=== PATIENT | male | born 1950 | race Caucasian/White ===

== ENCOUNTER 2017-04-22 06:45 | Emergency (ER) | payer MEDICARE ==
--- NOTE | 2017-04-22 07:32 | ED ---
General Adult HPI - General Chief complaint: Recheck/Abnormal Lab/Rx Stated complaint: Shingles Time Seen by Provider: 04/22/17 07:05 Source: patient, RN notes reviewed Mode of arrival: ambulatory Limitations: no limitations - History of Present Illness Initial comments: Patient is a pleasant 58-year-old male presenting to the emergency department with concern for shingles. Patient saw his doctor on Saturday and was started on Valtrex. Patient states symptoms started shortly prior to that. Patient is concerned that rash is getting near his right eye. Patient was told he would need to be evaluated again if this occurred. Patient has chronic right eye problems. Patient has had retinal detachment and other surgeries. Patient does have a history of surgery for glaucoma as well. Patient states his vision is limited and he is only able to see shadows most the time. Patient states at times she can see shapes. No eye pain. No left eye involvement. No change in vision at this time. Patient does have rash of his right forehead and states there is mild discomfort involved with this. - Related Data Home Medications Medication Instructions Recorded Confirmed Albuterol Sulfate [Proair Hfa] 1 - 2 puff INHALATION RT-Q6H PRN 09/02/16 Aspirin EC [Ecotrin Low Dose] 81 mg PO DAILY 09/02/16 09/02/16 Budesonide/Formoterol Fumarate 2 puff INHALATION RT-BID 09/02/16 09/02/16 [Symbicort 160-4.5 Mcg Inhaler] Esomeprazole Magnesium [NexIUM] 40 mg PO DAILY 09/02/16 09/02/16 Fluticasone Nasal [place] [Flonase 2 spr EA NOSTRIL DAILY 09/02/16 09/02/16 Nasal [place]] Previous Rx's Medication Instructions Recorded Azithromycin [Zithromax Z-pack] 250 mg PO DIRECTED #6 tab 09/02/16 Ipratropium-Albuterol Nebulize 3 ml INHALATION Q6HR PRN #30 neb 09/02/16 [Duoneb 0.5 mg-3 mg/3 ml Soln] methylPREDNISolone Dose Pack 4 mg PO DIRECTED #21 package 09/02/16 [Medrol Dose Pack] Allergies Allergy/AdvReac Type Severity Reaction Status Date / Time tramadol HCl [From Ultram] Allergy Unknown Verified 09/02/16 19:31 Review of Systems ROS Statement: Those systems with pertinent positive or pertinent negative responses have been documented in the HPI. ROS Other: All systems not noted in ROS Statement are negative. Constitutional: Denies: fever Eyes: Denies: eye pain, vision change ENT: Denies: ear pain Respiratory: Denies: cough Cardiovascular: Denies: chest pain Endocrine: Denies: fatigue Gastrointestinal: Denies: abdominal pain Genitourinary: Denies: urgency Musculoskeletal: Denies: back pain Skin: Denies: rash Neurological: Denies: weakness Past Medical History Past Medical History: Atrial Fibrillation, Asthma, COPD History of Any Multi-Drug Resistant Organisms: None Reported Past Surgical History: Hernia Repair, Orthopedic Surgery Additional Past Surgical History / Comment(s): ablation 3 weeks ago/ wrist / rotator cuff x2/ detatched retina/cataract Past Psychological History: No Psychological Hx Reported Smoking Status: Former smoker Past Alcohol Use History: Daily General Exam Limitations: no limitations General appearance: alert, in no apparent distress Head exam: Present: atraumatic Eye exam: Present: EOMI, other (Right pupil dilated and nonreactive. Limited funduscopic exam on the right. Fluroscein stain with some uptake on the right side near the border of iris.) ENT exam: Present: normal oropharynx Neck exam: Present: normal inspection Respiratory exam: Present: normal lung sounds bilaterally Cardiovascular Exam: Present: regular rate, normal rhythm GI/Abdominal exam: Present: soft. Absent: tenderness Extremities exam: Present: normal inspection Neurological exam: Present: alert Psychiatric exam: Present: normal affect, normal mood Skin exam: Present: rash (Right-sided forehead into the upper hairline with raised erythematous rash. There is minimal crusting.) Course Vital Signs 04/22/17 06:48 Temperature 98.4 F Pulse Rate 83 Respiratory 16 Rate Blood Pressure 135/79 O2 Sat by Pulse 95 Oximetry Medical Decision Making - Medical Decision Making case was discussed with Dr. Tadeo who will follow-up with this patient this morning. Patient updated. Disposition Clinical Impression: Shingles Disposition: HOME SELF-CARE Condition: Stable Instructions: Shingles (ED) Additional Instructions: Continue Valtrex as prescribed. Please follow-up with ophthalmology, Dr. Tadeo now. Return for increased rash, eye pain, visual loss, fever, worsening symptoms or other concerns. Referrals: Luis Alberto Davison MD [Primary Care Provider] - 1-2 days Ngo,Fahim K, MD [STAFF PHYSICIAN] - 1-2 days Time of Disposition: 08:04
[2017-04-22 08:33] VITALS: BP 139/80; PULSE 76; RESP 18; TEMP 97.7
== END 2017-04-22 08:27 | disposition home or self-care (01) ==
LOC: EC 06:45
DX: B02.9 Zoster without complications (principal); Z79.82 Long term (current) use of aspirin; J44.9 Chronic obstructive pulmonary disease, unspecified; J45.909 Unspecified asthma, uncomplicated; Z79.51 Long term (current) use of inhaled steroids; Z79.899 Other long term (current) drug therapy; Z87.891 Personal history of nicotine dependence; Z88.6 Allergy status to analgesic agent; H57.04 Mydriasis; Z98.890 Other specified postprocedural states
CPT/HCPCS: 99283

== ENCOUNTER → 2017-05-07 | Outpatient (CLI) | payer MEDICARE ==
--- NOTE | 2017-05-07 08:47 | US ---
EXAMINATION TYPE: US duplex aorta DATE OF EXAM: 05/07/2017 COMPARISON: NONE CLINICAL HISTORY: Z78.9 AAA screening. EXAM MEASUREMENTS: Abdominal Aorta: Proximal: 2.4cm Mid: 2.4cm Distal: 2.1cm Bifurcation: 1.1cm 1.3cm Aorta somewhat obscured by overlying bowel gas. IMPRESSION: NO EVIDENCE OF AORTIC ANEURYSM AT THIS TIME.
--- NOTE | 2017-05-07 09:36 | CTL ---
EXAMINATION TYPE: CT Low Dose Lung DATE OF EXAM ORDERED: 05/07/2017 HISTORY: . Lung cancer screening CT DLP: [address] CTDI: 2.41 mGy Automated exposure control for dose reduction was used. SCREENING VISIT: First COMPARISON: Previous CT scan of the chest dated 05/20/2013 TECHNIQUE: Low dose computed tomography scan was performed through the chest at 1 mm thick sections a nd reconstructed images in the coronal plane at [address] DIAGNOSTIC QUALITY: Limited, but interpretable FINDINGS: LUNG NODULES: None. LUNGS: COPD: Severity: Mild Fibrosis: Severity: None Lymph nodes: No pathologically enlarged lymph nodes Other findings: Apical scarring RIGHT PLEURAL SPACE: Effusion: None Calcification: None Thickening: None Pneumothorax: None LEFT PLEURAL SPACE: Effusion: None Calcification: None Thickening: None Pneumothorax: None HEART: Heart Size: Normal Coronary calcification: Minimal Pericardial effusion: None OTHER FINDINGS: Upper abdomen: Unremarkable Bony thorax: Hypertrophic spondylosis Supraclavicular region: Unremarkable Other: None IMPRESSION: Mild emphysematous change. FOLLOW UP CT CHEST RECOMMENDATION: [address] LUNG RAD: 1
== END | disposition home or self-care (01) ==
LOC: RADUSWWP 08:02
PROVIDERS: ATTEND Family Medicine
DX: Z12.2 Encounter for screening for malignant neoplasm of respiratory organs (principal); J43.9 Emphysema, unspecified; Z87.891 Personal history of nicotine dependence; Z13.6 Encounter for screening for cardiovascular disorders
CPT/HCPCS: 93979; G0297

== ENCOUNTER → 2017-06-25 | Outpatient (CLI) | payer MEDICARE ==
--- NOTE | 2017-06-26 09:05 | CONS ---
This is a consultation for sleep apnea. Primary care physician is Dr. Luis Alberto Davison. This is a 67-year-old male patient who was presenting to sleep center with concerns of sleep apnea. He is known to have COPD and previous history of atrial fibrillation, for which he has undergone a successful ablation at [facility] in [place]. Currently, he is in sinus rhythm and he is off anticoagulation. In terms of his COPD, he is on Arnuity inhaler at one puff a day. He has been very sleepy. His [place] score is at 17. He has soft snoring. No witnessed apneas. He has nocturia. He has nocturnal heartburn. He falls asleep during the day and is quite sleepy and it has been getting gradually worse. No falling asleep while driving. He is currently retired. No recent weight gain. He goes to bed around 10 p.m., wakes up 7 a.m. in the morning; averaging at least 8 hours of sleep. [place] score is at 17 for now. No angina. No swelling of the lower extremities. No restless legs. No sleep walking or sleep talking. No grinding of the teeth. No anxiety or depression. PAST MEDICAL HISTORY: 1. COPD. 2. Chronic atrial fibrillation, currently in sinus post ablation. 3. Obesity. 4. Vitamin B12 deficiency. 5. Acid reflux. Surgical history includes ablation of atrial fibrillation, hernia repair, rotator cuff surgery in both shoulders, carpal tunnel release, cataract surgery and surgery for detached retina. Allergies are to ULTRAM. Outpatient medication list includes Nexium, Flonase, baby aspirin, Arnuity inhaler, Lamisil and gabapentin. Family history is negative for sleep apnea. SOCIAL HISTORY: Patient is an ex-smoker. No history of alcohol. No history of IV drugs. REVIEW OF SYSTEM: Twelve point review of systems was done. No stroke. No seizures. No change in mental status. No nasal polyps. She had no anemia. No mental illness. No restlessness of the lower extremities. No cancer history. No degenerative arthritis. No motor vehicle accident because of falling asleep, although he has dozed off behind the wheel because of feeling excessively sleepy. BP is 118/78, pulse 74, respiratory rate 16, temperature 97.5, saturation 94% on room air. Weight is 222. Height is 70 inches. BMI is 31.8. [place] score is 17. Neck size is 18 inches. GENERAL APPEARANCE: Calm, comfortable. HEENT: Mallampati class 3. No goiter or neck mass. LUNGS: Clear to auscultation. HEART SOUNDS: Regular rate and rhythm. Normal S1, S2. No S3, no S4. No murmurs. ABDOMEN: Soft, nontender. No organomegaly. EXTREMITIES: No edema, no cyanosis or clubbing. IMPRESSION: 1. Excessive hypersomnia. [place] score of 17 under investigation, rule out obstructive sleep apnea. 2. Atrial fibrillation, status post successful ablation, current rhythm is sinus. 3. Chronic obstructive pulmonary disease, currently inactive and stable. 4. Obesity with a body mass index of 31.8. 5. History of acid reflux. 6. Vitamin B12 deficiency. PLAN: 1. Encourage weight loss. 2. Sleep in a side orta body position. 3. Sleep hygiene measures are adequate. 4. Proceed with screening polysomnogram and treat accordingly. JAVY
== END ==
LOC: SLEEP 15:54
PROVIDERS: ATTEND Internal Medicine Critical Care Medicine
DX: G47.10 Hypersomnia, unspecified (principal); I48.91 Unspecified atrial fibrillation; J44.9 Chronic obstructive pulmonary disease, unspecified; E66.9 Obesity, unspecified; K21.9 Gastro-esophageal reflux disease without esophagitis; E53.8 Deficiency of other specified B group vitamins; Z68.31 Body mass index [BMI] 31.0-31.9, adult; Z88.6 Allergy status to analgesic agent; Z79.899 Other long term (current) drug therapy; Z79.82 Long term (current) use of aspirin
CPT/HCPCS: 99211

== ENCOUNTER → 2018-05-08 | Outpatient (CLI) | payer MEDICARE ==
--- NOTE | 2018-05-08 09:49 | CTL ---
EXAMINATION TYPE: CT Low Dose Lung DATE OF EXAM ORDERED: 05/08/2018 HISTORY: 67-year-old male personal history of tobacco use. Lung cancer screening CT DLP: 114.[address] CTDI: 3.3 mGy Automated exposure control for dose reduction was used. SCREENING VISIT: Annual follow-up COMPARISON: 05/07/2017 TECHNIQUE: Low dose computed tomography scan was performed through the chest at 1 mm thick sections a nd reconstructed images in the coronal and sagittal plane at 1 mm thick sections. Coronal MIP reconst ructions performed. CT DIAGNOSTIC QUALITY: Satisfactory FINDINGS: Heart normal size without pericardial effusion. Mild coronary vessel calcifications are present. Ectatic upper descending thoracic aorta at 3.1 cm. There is conventional arch vessel branching anatom y with mild atherosclerotic arch calcifications. No thoracic lymphadenopathy by CT size criteria. Mild diffuse bronchial wall thickening and mild centrilobular emphysema. Mild biapical pleural-parenc hymal scarring. No suspicious pulmonary nodule or mass. No consolidation or pleural effusion. Visualized upper abdomen shows no gross abnormality. Bones: Endplate spondylosis mid to lower thoracic spine. IMPRESSION: 1. Lung RADS 1 - negative; no suspicious pulmonary nodules. 2. COPD with mild emphysema. RECOMMENDATION: 1. Continue with annual lung cancer screening low dose CT. 2. Smoking cessation. FOLLOW UP CT CHEST RECOMMENDATION: [address] LUNG RAD: Lung-Rad 1 Negative
== END | disposition home or self-care (01) ==
LOC: RADCTMAIN 09:05
PROVIDERS: ATTEND Family Medicine
DX: J43.9 Emphysema, unspecified (principal); Z87.891 Personal history of nicotine dependence

== ENCOUNTER → 2018-10-22 | Outpatient (CLI) | payer MEDICARE ==
--- NOTE | 2018-10-22 11:32 | CT ---
EXAMINATION TYPE: CT chest wo con DATE OF EXAM: 10/22/2018 COMPARISON: 05/08/2018 low-dose chest CT HISTORY: Cough CT DLP: 613 mGycm. Automated Exposure Control for Dose Reduction was Utilized. TECHNIQUE: CT scan of the thorax is performed without IV contrast. FINDINGS: Exam is slightly suboptimal due to patient motion. LUNGS: There is redemonstration of mild to moderate centrilobular pulmonary emphysema. There is minim al biapical pleural-parenchymal thickening. Few right lower lobe medial blebs are noted. Few scattere d areas of minimal subsegmental atelectasis are also seen. The lungs are grossly clear, there is no c oncerning parenchymal mass or nodule identified. There is no pleural effusion or pneumothorax seen. The tracheobronchial tree is patent. MEDIASTINUM: Lack of IV contrast is noted to limit evaluation for mediastinal and especially hilar ad enopathy. There are no definitive greater than 1 cm hilar or mediastinal lymph nodes. No cardiomega ly or pericardial effusion is seen. Ascending thoracic aorta is within normal limits measuring 3.3 cm . OTHER: Diffuse pancreatic parenchyma atrophy is noted. Descending duodenal diverticulum is also incid entally noted. Thyroid gland is slightly heterogenous. Moderate multilevel degenerative changes of th e thoracic spine are seen. IMPRESSION: 1. Mild to moderate centrilobular pulmonary emphysema and minimal biapical pleural parenchymal thicke paramjit. 2. No focal consolidation, bronchiectasis, pulmonary mass, pleural effusion or pneumothorax.
== END | disposition home or self-care (01) ==
LOC: RADCTMAIN 09:39
PROVIDERS: ATTEND Internal Medicine Critical Care Medicine
DX: J43.2 Centrilobular emphysema (principal); J98.4 Other disorders of lung
CPT/HCPCS: 71250

== ENCOUNTER 2019-11-27 15:43 | Observation (INO) | payer MEDICARE ==
--- NOTE | 2019-11-27 16:24 | ED ---
General Adult HPI - General Chief complaint: Chest Pain Stated complaint: Chest pain Time Seen by Provider: 11/27/19 16:03 Source: patient, RN notes reviewed, old records reviewed Mode of arrival: ambulatory Limitations: no limitations - History of Present Illness Initial comments: 69-year-old male history of atrial fibrillation presents for evaluation of chest pain. Patient was seen at the primary care office with complaint of chest pain and sent to the emergency department for evaluation. 2 nights prior to evaluation the patient had developed indigestion and central chest pain with some dyspnea. Patient describes this as a burning sensation in his chest with associated nausea and belching. He did not seek medical attention at this time and symptoms did resolve without treatment. He states that he did not have radiating symptoms at the initial onset of pain. He states that yesterday evening he developed some left arm numbness and pain which was not associated with central chest pain. Patient has history of atrial fibrillation, currently on 81 mg aspirin, no anticoagulation. He is 5 years status post ablation. No history of coronary artery disease. Pain resolved with time my evaluation. Patient has no complaints. - Related Data Home Medications Medication Instructions Recorded Confirmed Aspirin EC [Ecotrin Low Dose] 81 mg PO DAILY 09/02/16 04/22/17 Esomeprazole Magnesium [NexIUM] 40 mg PO DAILY 09/02/16 04/22/17 Budesonide/Formoterol Fumarate 2 puff INHALATION RT-BID 04/22/17 04/22/17 [Symbicort 160-4.5 Mcg Inhaler] Terbinafine [LamISIL] 250 mg PO DAILY 04/22/17 04/22/17 diphenhydrAMINE HCL [Benadryl] 25 mg PO ONCE PRN 04/22/17 04/22/17 valACYclovir HCL [Valtrex] 1,000 mg PO Q8HR 04/22/17 04/22/17 Allergies Allergy/AdvReac Type Severity Reaction Status Date / Time tramadol HCl [From [facility]] Allergy Severe Unknown Verified 11/27/19 15:49 Review of Systems ROS Statement: Those systems with pertinent positive or pertinent negative responses have been documented in the HPI. ROS Other: All systems not noted in ROS Statement are negative. Past Medical History Past Medical History: Atrial Fibrillation, Asthma, COPD History of Any Multi-Drug Resistant Organisms: None Reported Past Surgical History: Hernia Repair, Orthopedic Surgery Additional Past Surgical History / Comment(s): ablation 3 weeks ago/ wrist / rotator cuff x2/ detatched retina/cataract Past Psychological History: No Psychological Hx Reported Smoking Status: Former smoker Past Alcohol Use History: Daily Past Drug Use History: None Reported General Exam Limitations: no limitations General appearance: alert, in no apparent distress Head exam: Present: atraumatic, normocephalic Eye exam: Present: normal appearance, PERRL ENT exam: Present: normal exam Neck exam: Present: normal inspection. Absent: tenderness, meningismus Respiratory exam: Present: normal lung sounds bilaterally. Absent: respiratory distress, wheezes Cardiovascular Exam: Present: regular rate, irregular rhythm GI/Abdominal exam: Present: soft. Absent: distended, tenderness, guarding Extremities exam: Present: normal inspection, normal capillary refill. Absent: pedal edema, calf tenderness Neurological exam: Present: alert, oriented X3, CN II-XII intact. Absent: motor sensory deficit Psychiatric exam: Present: normal affect, normal mood Skin exam: Present: warm, dry, intact. Absent: cyanosis, diaphoretic Course Vital Signs 11/27/19 11/27/19 15:47 16:43 Temperature 98 F Pulse Rate 55 L Respiratory 20 18 Rate Blood Pressure 165/90 O2 Sat by Pulse 98 Oximetry EKG Findings - EKG Comments: EKG Findings:: EKG: Atrial fibrillation with PVC, there is a P wave in front of several QRS complexes, rate of 76, PA interval does appear within normal limits. QRS duration is narrow 72 ms, QTC 432, no ST segment elevation Medical Decision Making - Medical Decision Making 69-year-old male presenting with 2 episodes over the past 48 hours of chest pain radiating to the left arm. Patient has no known history of coronary artery disease. He does have history of atrial fibrillation, not currently anticoagulated. He is chest pain-free at the time my evaluation he has EKG showing atrial fibrillation with PVC, no ST segment elevation. Chest x-ray is negative for any acute cardiopulmonary disease. He has normal CBC, normal CMP, negative initial troponin. Patient is initiated on heparin, he will be admitted for telemetry, cardiology consultation, and serial troponins. 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 He does state that if he were to need a cardiac intervention he would prefer transfer at that time. I did have a long conversation regarding transfer versus staying in this institution and patient and his spouse do not want to be transferred at this time. - Lab Data Result diagrams: 11/27/19 16:45 11/27/19 16:45 Lab Results 11/27/19 11/27/19 11/27/19 Range/Units 16:45 16:45 16:45 WBC 7.1 (3.8-10.6) k/uL RBC 4.71 (4.30-5.90) m/uL Hgb 14.6 (13.0-17.5) gm/dL Hct 43.0 (39.0-53.0) % MCV 91.4 (80.0-100.0) fL MCH 31.0 (25.0-35.0) pg MCHC 34.0 (31.0-37.0) g/dL RDW 13.1 (11.5-15.5) % Plt Count 176 (150-450) k/uL Neutrophils % 69 % Lymphocytes % 18 % Monocytes % 6 % Eosinophils % 4 % Basophils % 1 % Neutrophils # 4.9 (1.3-7.7) k/uL Lymphocytes # 1.3 (1.0-4.8) k/uL Monocytes # 0.4 (0-1.0) k/uL Eosinophils # 0.3 (0-0.7) k/uL Basophils # 0.1 (0-0.2) k/uL PT (9.0-12.0) sec INR (<1.2) APTT (22.0-30.0) sec Sodium 135 L (137-145) mmol/L Potassium 4.0 (3.5-5.1) mmol/L Chloride 101 (98-107) mmol/L Carbon Dioxide 28 (22-30) mmol/L Anion Gap 6 mmol/L BUN 21 H (9-20) mg/dL Creatinine 0.93 (0.66-1.25) mg/dL Est GFR (CKD-EPI)AfAm >90 (>60 ml/min/1.73 sqM) Est GFR (CKD-EPI)NonAf 83 (>60 ml/min/1.73 sqM) Glucose 103 H (74-99) mg/dL Calcium 8.9 (8.4-10.2) mg/dL Magnesium 1.6 (1.6-2.3) mg/dL Total Bilirubin 0.6 (0.2-1.3) mg/dL AST 33 (17-59) U/L ALT 33 (4-49) U/L Alkaline Phosphatase 61 (38-126) U/L Troponin I (0.000-0.034) ng/mL NT-Pro-B Natriuret Pep 100 pg/mL Total Protein 6.3 (6.3-8.2) g/dL Albumin 3.8 (3.5-5.0) g/dL 11/27/19 11/27/19 Range/Units 16:45 16:45 WBC (3.8-10.6) k/uL RBC (4.30-5.90) m/uL Hgb (13.0-17.5) gm/dL Hct (39.0-53.0) % MCV (80.0-100.0) fL MCH (25.0-35.0) pg MCHC (31.0-37.0) g/dL RDW (11.5-15.5) % Plt Count (150-450) k/uL Neutrophils % % Lymphocytes % % Monocytes % % Eosinophils % % Basophils % % Neutrophils # (1.3-7.7) k/uL Lymphocytes # (1.0-4.8) k/uL Monocytes # (0-1.0) k/uL Eosinophils # (0-0.7) k/uL Basophils # (0-0.2) k/uL PT 9.9 (9.0-12.0) sec INR 0.9 (<1.2) APTT 22.1 (22.0-30.0) sec Sodium (137-145) mmol/L Potassium (3.5-5.1) mmol/L Chloride (98-107) mmol/L Carbon Dioxide (22-30) mmol/L Anion Gap mmol/L BUN (9-20) mg/dL Creatinine (0.66-1.25) mg/dL Est GFR (CKD-EPI)AfAm (>60 ml/min/1.73 sqM) Est GFR (CKD-EPI)NonAf (>60 ml/min/1.73 sqM) Glucose (74-99) mg/dL Calcium (8.4-10.2) mg/dL Magnesium (1.6-2.3) mg/dL Total Bilirubin (0.2-1.3) mg/dL AST (17-59) U/L ALT (4-49) U/L Alkaline Phosphatase (38-126) U/L Troponin I <0.012 (0.000-0.034) ng/mL NT-Pro-B Natriuret Pep pg/mL Total Protein (6.3-8.2) g/dL Albumin (3.5-5.0) g/dL Disposition Clinical Impression: Unstable angina pectoris, Chest pain Disposition: ADMITTED IP TO THIS [facility] Condition: Stable Is patient prescribed a controlled substance at d/c from ED?: No Referrals: Luis Alberto Davison MD [Primary Care Provider] - 1-2 days Time of Disposition: 18:07 Decision to Admit Reason: Admit from EC Decision Date: 11/27/19 Decision Time: 18:07
--- NOTE | 2019-11-27 16:35 | XR ---
EXAMINATION TYPE: XR chest 2V DATE OF EXAM: 11/27/2019 COMPARISON: 09/02/2016 HISTORY: Chest pain TECHNIQUE: FINDINGS: Heart is normal. Lungs are clear of infiltrate. There is spurring in the thoracic spine. Th ere are chest leads. Bony thorax is intact. There is no evidence of pleural effusion. IMPRESSION: No active cardiopulmonary disease. No change.
[2019-11-27 16:57] LABS: Basophils # (A) 0.1 k/uL (0-0.2); Basophils % (A) 1 %; Eosinophils # (A) 0.3 k/uL (0-0.7); Eosinophils % (A) 4 %; HGB 14.6 gm/dL (13.0-17.5); Lymphocytes # (A) 1.3 k/uL (1.0-4.8); Lymphocytes % (A) 18 %; MCV 91.4 fL (80.0-100.0); Monocytes # (A) 0.4 k/uL (0-1.0); Monocytes % (A) 6 %; Neutrophils # (A) 4.9 k/uL (1.3-7.7); Neutrophils % (A) 69 %; Platelet Count 176 k/uL (150-450); RBC 4.71 m/uL (4.30-5.90); RDW 13.1 % (11.5-15.5); WBC 7.1 k/uL (3.8-10.6)
[2019-11-27 17:05] LABS: ALT 33 U/L (4-49); AST 33 U/L (17-59); African American GFR (CKD) >90 (>60 ml/min/1.73 sqM); Albumin 3.8 g/dL (3.5-5.0); Alkaline Phosphatase 61 U/L (38-126); Anion Gap 6 mmol/L; Blood Urea Nitrogen 21 mg/dL (9-20); Calcium 8.9 mg/dL (8.4-10.2); Carbon Dioxide 28 mmol/L (22-30); Chloride 101 mmol/L (98-107); Glucose 103 mg/dL (74-99); Magnesium 1.6 mg/dL (1.6-2.3); Non-African American GFR(CKD) 83 (>60 ml/min/1.73 sqM); Sodium 135 mmol/L (137-145); Total Bilirubin 0.6 mg/dL (0.2-1.3); Total Protein 6.3 g/dL (6.3-8.2)
[2019-11-27 17:13] LABS: INR 0.9 (<1.2); Partial Thromboplastin Time 22.1 sec (22.0-30.0); Prothrombin Time 9.9 sec (9.0-12.0)
[2019-11-27] MEDS ORDERED: ASPIRIN 325 MG TAB PO STA (18:01)
[2019-11-27] MEDS ORDERED: HEPARIN SODIUM,PORCINE 5,000 UNIT/ML 1 ML VIAL IV PRN (18:01)
[2019-11-27] MEDS ORDERED: HEPARIN SODIUM,PORCINE 5,000 UNIT/ML 1 ML VIAL IV ONE (18:01)
[2019-11-27] MEDS ORDERED: NALOXONE 0.4 MG/ML 1 ML VIAL IV PRN (18:01)
[2019-11-27] MEDS ORDERED: MORPHINE SULFATE 4 MG/ML SYRINGE IV PRN (18:01)
[2019-11-27] MEDS ORDERED: SODIUM CHLORIDE 0.9% 1,000 ML IV SCH (18:15)
[2019-11-27] MEDS ORDERED: HEPARIN SOD,PORK IN 0.45% NACL 25,000 UNIT in 0.45% NACL 1 250ML.BAG IV SCH (18:15)
[2019-11-27] MEDS ORDERED: SYMBICORT 160-4.5 MCG INHALER INHALATION SCH (20:00)
[2019-11-27] MEDS ORDERED: FLUTICASONE 50MCG/SPRAY NASAL 16GM EA NOSTRIL SCH (21:15)
[2019-11-27] MEDS: SYMBICORT 160-4.5 MCG INHALER INHALATION SCH (22:38)
[2019-11-28 05:59] LABS: Basophils # (A) 0.1 k/uL (0-0.2); Basophils % (A) 1 %; Eosinophils # (A) 0.3 k/uL (0-0.7); Eosinophils % (A) 6 %; HCT 40.3 % (39.0-53.0); HGB 13.9 gm/dL (13.0-17.5); Lymphocytes # (A) 1.3 k/uL (1.0-4.8); Lymphocytes % (A) 24 %; MCH 31.7 pg (25.0-35.0); MCHC 34.5 g/dL (31.0-37.0); MCV 91.9 fL (80.0-100.0); Mean Platelet Volume 7.8; Monocytes # (A) 0.3 k/uL (0-1.0); Monocytes % (A) 6 %; Neutrophils # (A) 3.3 k/uL (1.3-7.7); Neutrophils % (A) 60 %; Platelet Count 178 k/uL (150-450); RBC 4.39 m/uL (4.30-5.90); RDW 13.1 % (11.5-15.5); WBC 5.4 k/uL (3.8-10.6)
[2019-11-28] MEDS: SYMBICORT 160-4.5 MCG INHALER INHALATION SCH (07:22)
[2019-11-28] MEDS ORDERED: PANTOPRAZOLE 40 MG TABLET PO SCH (07:30)
--- NOTE | 2019-11-28 08:18 | P.CRDCN ---
History of Present Illness Consult date: 11/28/19 Chief complaint: Chest pain History of present illness: This is a 69-year-old gentleman who sees a rn registry out of the town with a past medical history significant for paroxysmal atrial fibrillation where he underwent he stated multiple inflations in the past presented to the hospital complaining of chest discomfort. The patient stated that for the last 2 days he has been experiencing symptoms of indigestion. Subsequently he started ex periencing discomfort. The discomfort is in the epigastric area. No radiation to the chest. No associated symptoms of shortness of breath, dizziness, heart racing, or syncope. He stated that currently he has been chest pain-free. Before discomfort started he was experiencing symptoms of nausea and blotching. No prior cardiac history. The EKG showed atrial fibrillation was controlled heart rate. 3 sets of cardiac enzymes came in to be unremarkable. The patient state that he underwent heart catheterization in the past multiple times and that came in to be unremarkable. I told the patient that he needs to undergo a stress test but because its Saturday that this needed to be done this coming Saturday. The patient would like to be discharged home and sees his rn registry. I am going to get the patient up and around and if he is asymptomatic he possibly can go home. Past Medical History Past Medical History: Atrial Fibrillation, Asthma, COPD History of Any Multi-Drug Resistant Organisms: None Reported Past Surgical History: Hernia Repair, Orthopedic Surgery Additional Past Surgical History / Comment(s): ablation 2015/ wrist / rotator cuff x2/ detatched retina/cataract Past Anesthesia/Blood Transfusion Reactions: Postoperative Nausea & Vomiting (PONV) Past Psychological History: No Psychological Hx Reported Smoking Status: Former smoker Past Alcohol Use History: Daily Past Drug Use History: None Reported Medications and Allergies Home Medications Medication Instructions Recorded Confirmed Type Aspirin EC [Ecotrin Low Dose] 81 mg PO DAILY 09/02/16 11/27/19 History Budesonide/Formoterol Fumarate 2 puff INHALATION RT-HS 04/22/17 11/27/19 History [Symbicort 160-4.5 Mcg Inhaler] Albuterol Sulfate [Ventolin HFA] 1 - 2 puff INHALATION RT-Q6H PRN 11/27/19 11/27/19 History Anastrozole [Arimidex] 1 mg PO MOWEFR 11/27/19 11/27/19 History Chlorthalidone [Hygroton] 25 mg PO DAILY 11/27/19 11/27/19 History Cyanocobalamin (Vitamin B-12) 500 mcg PO DAILY 11/27/19 11/27/19 History [Vitamin B-12] Esomeprazole Magnesium [NexIUM] 40 mg PO DAILY 11/27/19 11/27/19 History Fluticasone Nasal [place] [Flonase 1 spr EA NOSTRIL HS 11/27/19 11/27/19 History Nasal [place]] Sildenafil Citrate [Viagra] 50 mg PO DAILY PRN 11/27/19 11/27/19 History Allergies Allergy/AdvReac Type Severity Reaction Status Date / Time tramadol HCl [From [facility]] Allergy Severe Unknown Verified 11/27/19 20:36 Physical Exam Vitals: Vital Signs Temp Pulse Pulse Resp BP BP BP 11/28/19 07:32 97.6 F 68 20 124/79 11/28/19 04:00 98.9 F 67 17 131/74 11/28/19 00:00 98.4 F 67 16 113/70 11/27/19 20:14 75 18 115/87 11/27/19 16:43 18 11/27/19 15:47 98 F 55 L 20 165/90 Pulse Ox 11/28/19 07:32 96 11/28/19 04:00 98 11/28/19 00:00 98 11/27/19 20:14 94 L 11/27/19 16:43 11/27/19 15:47 98 Intake and Output 11/27/19 11/28/19 11/28/19 22:59 06:59 14:59 Intake Total 79.333 Balance 79.333 Intake: Intake, IV Titration 79.333 Amount Heparin Sod,Pork in 0.45% 79.333 NaCl 25,000 unit In 0.45 % NaCl 1 250ml.bag @ 10. 16 UNITS/KG/HR 10 mls/hr IV .Q24H [facility] Rx#: [id number] Other: Voiding Method Toilet # Voids 2 Weight 98.43 kg - Constitutional General appearance: no acute distress - Respiratory Respiratory: bilateral: CTA - Cardiovascular Rhythm: irregularly irregular Heart sounds: normal: S1, S2 Results 11/28/19 05:26 11/27/19 16:45 Cardiac Enzymes 11/27/19 11/27/19 11/27/19 Range/Units 16:45 16:45 23:31 AST 33 (17-59) U/L Troponin I <0.012 <0.012 (0.000-0.034) ng/mL 11/28/19 Range/Units 05:26 AST (17-59) U/L Troponin I <0.012 (0.000-0.034) ng/mL Coagulation 11/27/19 11/28/19 Range/Units 16:45 02:23 PT 9.9 (9.0-12.0) sec APTT 22.1 39.5 H (22.0-30.0) sec CBC 11/27/19 11/28/19 Range/Units 16:45 05:26 WBC 7.1 5.4 (3.8-10.6) k/uL RBC 4.71 4.39 (4.30-5.90) m/uL Hgb 14.6 13.9 (13.0-17.5) gm/dL Hct 43.0 40.3 (39.0-53.0) % Plt Count 176 178 (150-450) k/uL Comprehensive Metabolic Panel 11/27/19 Range/Units 16:45 Sodium 135 L (137-145) mmol/L Potassium 4.0 (3.5-5.1) mmol/L Chloride 101 (98-107) mmol/L Carbon Dioxide 28 (22-30) mmol/L BUN 21 H (9-20) mg/dL Creatinine 0.93 (0.66-1.25) mg/dL Glucose 103 H (74-99) mg/dL Calcium 8.9 (8.4-10.2) mg/dL AST 33 (17-59) U/L ALT 33 (4-49) U/L Alkaline Phosphatase 61 (38-126) U/L Total Protein 6.3 (6.3-8.2) g/dL Albumin 3.8 (3.5-5.0) g/dL Current Medications Generic Name Dose Route Start Last Admin Trade Name Freq PRN Reason Stop Dose Admin Budesonide/Formoterol Fumarate 2 puff 11/27/19 21:00 11/28/19 07:22 Symbicort 160-4.5 Mcg Inhaler INHALATION 2 puff RT-BID [facility] Administration Fluticasone Propionate 1 spray 11/27/19:15 11/27/19 21:26 Flonase Nasal [place] EA NOSTRIL 1 spray HS [facility] Administration Heparin Sodium (Porcine) 0 unit 11/27/19 18:01 11/28/19 04:01 Heparin IV 2,450 unit PER PROTOCOL PRN Administration Low PTT Protocol Heparin Sodium/Sodium Chloride 250 mls @ 10 mls/hr 11/27/19 18:15 11/28/19 04:01 25,000 unit/ Sodium Chloride IV 12.16 units/kg/hr .Q24H [facility] 11.969 mls/hr Titration Protocol 10.16 UNITS/KG/HR Sodium Chloride 1,000 mls @ 20 mls/hr 11/27/19 18:15 11/27/19 20:06 Saline 0.9% IV 20 mls/hr .Q24H [facility] Administration Morphine Sulfate 4 mg 11/27/19 18:01 Morphine Sulfate (Inj) IV Q4HR PRN Severe Pain Naloxone HCl 0.2 mg 11/27/19 18:01 Narcan IV Q2M PRN Opioid Reversal Pantoprazole Sodium 40 mg 11/28/19 07:30 Protonix PO AC-BRKFST [facility] Intake and Output 11/27/19 11/28/19 11/28/19 22:59 06:59 14:59 Intake Total 79.333 Balance 79.333 Intake: Intake, IV Titration 79.333 Amount Heparin Sod,Pork in 0.45% 79.333 NaCl 25,000 unit In 0.45 % NaCl 1 250ml.bag @ 10. 16 UNITS/KG/HR 10 mls/hr IV .Q24H [facility] Rx#: [id number] Other: Voiding Method Toilet # Voids 2 Weight 98.43 kg 11/28/19 05:26 11/27/19 16:45 Assessment and Plan Assessment: Assessment #1 atypical chest discomfort #2 paroxysmal atrial fibrillation Plan #1 acute coronary event was ruled out #2 the patient need to have a stress test probably as an outpatient #3 he would like to be discharged home and sees his rn registry
[2019-11-28 12:32] VITALS: BP 132/88; PULSE 50; RESP 16; TEMP 98.1
--- NOTE | 2019-11-28 19:01 | P.HPIM ---
History of Present Illness H&P Date: 11/28/19 Chief Complaint: Chest pain History of presenting complaint: This is a 69-year-old patient of Dr. Luis Alberto Davison. Chronic stable medical conditions include COPD, GERD, B12 deficiency, essential hypertension. Patient had atrial fibrillation and is had ablation in the past. Patient does follow with a emissions engineer out of the area. Patient presented after developing some anterior chest pressure followed by burping. That seemed to make it worse. He has some relief with Tums toe. He had 3 different episodes of discomfort 24 hours. 4 other episodes patient felt to numbness on his left arm and felt a bit dizzy. Sometimes would last sometimes up to 20 minutes. Because of the recurrent nature of the presentation patient decided to come in. Review of systems: GEN.: None EYES: None HEENT: None NECK: None RESPIRATORY: None CARDIOVASCULAR: As above GASTROINTESTINAL: As above GENITOURINARY: None MUSCULOSKELETAL: None LYMPHATICS: None HEMATOLOGICAL: None PSYCHIATRY: None NEUROLOGICAL: None Past medical history to include: Atrial fibrillation, with ablation, COPD, GERD, B12 deficiency, essential hypertension Social history: Smoked a pack a day for close to 30 years stopped years ago. 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 . No alcohol Family history: Reviewed, noncontributory to presentation Physical examination: VITAL SIGNS: 98, 55, 20, pulse 65/90, 98% on room air GENERAL: BMI 28.6, laying in bed, awake. EYES: Pupils equal. Conjunctiva normal. HEENT: External appearance of nose and ears normal, oral cavity grossly normal. NECK: JVD not raised; masses not palpable. HEART: First and second heart sounds are normal; no edema. LUNGS: Respiratory rate normal; slightly decreased breath sounds. ABDOMEN: Soft, nontender, liver spleen not palpable, no masses palpable. PSYCH: Alert and oriented x3; mood and affect normal. NEUROLOGICAL: Cranial nerves grossly intact; no facial asymmetry, power and sensation grossly intact. LYMPHATICS: No lymph nodes palpable in the axilla and neck INVESTIGATIONS, reviewed in the clinical context: White count 7.1 hemoglobin 40.6 percussion for bun 21 creatinine 0.93 Troponin I 3 negative EKG tracing personally reviewed by me-atrial fibrillation with rate controlled Chest x-ray film personally reviewed by me-questionable some chronic changes Assessment: -Recurrent episodes of chest pain with some association with burping, probably could be a GI phenomena at the same time, given recurrence of atrial fibrillation need to rule out underlying coronary artery disease post or atypical presentation -Persistent atrial fibrillation -COPD in an ex-smoker -Chronic B12 deficiency -Essential hypertension Plan: Patient was admitted to telemetry. Cardiology was consulted. Home medications are reviewed. Patient troponins were negative. Care was discussed with the patient and at the bedside. Past Medical History Past Medical History: Atrial Fibrillation, Asthma, COPD History of Any Multi-Drug Resistant Organisms: None Reported Past Surgical History: Hernia Repair, Orthopedic Surgery Additional Past Surgical History / Comment(s): ablation 2015/ wrist / rotator cuff x2/ detatched retina/cataract Past Anesthesia/Blood Transfusion Reactions: Postoperative Nausea & Vomiting (PONV) Past Psychological History: No Psychological Hx Reported Smoking Status: Former smoker Past Alcohol Use History: Daily Past Drug Use History: None Reported Medications and Allergies Home Medications Medication Instructions Recorded Confirmed Type Aspirin EC [Ecotrin Low Dose] 81 mg PO DAILY 09/02/16 11/27/19 History Budesonide/Formoterol Fumarate 2 puff INHALATION RT-HS 04/22/17 11/27/19 History [Symbicort 160-4.5 Mcg Inhaler] Albuterol Sulfate [Ventolin HFA] 1 - 2 puff INHALATION RT-Q6H PRN 11/27/19 History Anastrozole [Arimidex] 1 mg PO MOWEFR 11/27/19 11/27/19 History Chlorthalidone [Hygroton] 25 mg PO DAILY 11/27/19 11/27/19 History Cyanocobalamin (Vitamin B-12) 500 mcg PO DAILY 11/27/19 11/27/19 History [Vitamin B-12] Esomeprazole Magnesium [NexIUM] 40 mg PO DAILY 11/27/19 11/27/19 History Fluticasone Nasal [place] [Flonase 1 spr EA NOSTRIL HS 11/27/19 11/27/19 History Nasal [place]] Sildenafil Citrate [Viagra] 50 mg PO DAILY PRN 11/27/19 11/27/19 History Allergies Allergy/AdvReac Type Severity Reaction Status Date / Time tramadol HCl [From Ultram] Allergy Severe Unknown Verified 11/27/19 20:36 Physical Exam Vitals: Vital Signs Temp Pulse Pulse Resp BP BP BP 11/28/19 07:32 97.6 F 68 20 124/79 11/28/19 04:00 98.9 F 67 17 131/74 11/28/19 00:00 98.4 F 67 16 113/70 11/27/19 20:14 75 18 115/87 11/27/19 16:43 18 11/27/19 15:47 98 F 55 L 20 165/90 Pulse Ox 11/28/19 07:32 96 11/28/19 04:00 98 11/28/19 00:00 98 11/27/19 20:14 94 L 11/27/19 16:43 11/27/19 15:47 98 Intake and Output 11/27/19 11/28/19 11/28/19 22:59 06:59 14:59 Intake Total 79.333 Balance 79.333 Intake: Intake, IV Titration 79.333 Amount Heparin Sod,Pork in 0.45% 79.333 NaCl 25,000 unit In 0.45 % NaCl 1 250ml.bag @ 10. 16 UNITS/KG/HR 10 mls/hr IV .Q24H [facility] Rx#: [id number] Other: Voiding Method Toilet # Voids 2 1 Weight 98.43 kg Results CBC & Chem 7: 11/28/19 05:26 11/27/19 16:45 Labs: Abnormal Lab Results - Last 24 Hours (Table) 11/27/19 11/28/19 Range/Units 16:45 02:23 APTT 39.5 H (22.0-30.0) sec Sodium 135 L (137-145) mmol/L BUN 21 H (9-20) mg/dL Glucose 103 H (74-99) mg/dL Thrombosis Risk Factor Assmnt - Choose All That Apply Any of the Below Risk Factors Present?: Yes Each Factor Represents 1 point: Abnormal pulmonary function (COPD), Obesity (BMI >25) Each Risk Factor Represents 2 Points: Age 61-74 years Thrombosis Risk Factor Assessment Total Risk Factor Score: 4 Thrombosis Risk Factor Assessment Level: Moderate Risk
--- NOTE | 2019-11-28 19:05 | P.DS ---
Providers Date of admission: 11/27/19 18:21 Expected date of discharge: 11/28/19 Attending physician: Jeff Felipe Consults: 11/27/19 18:02 Consult Physician Routine Consulting Provider: Osmin Galeano Consult Reason/Comments: Unstable angina, atrial fibrillation Do you want consulting provider notified?: Yes Primary care physician: Luis Alberto [facility] Hospital Course: Chief Complaint: Chest pain Hospital course: This is a 69-year-old patient of Dr. Luis Alberto Davison. Chronic stable medical conditions include COPD, GERD, B12 deficiency, essential hypertension. Patient had atrial fibrillation and is had ablation in the past. Patient does follow with a sample examiner out of the area. Patient presented after developing some anterior chest pressure followed by burping. That seemed to make it worse. He has some relief with Tums toe. He had 3 different episodes of discomfort 24 hours. 4 other episodes patient felt to numbness on his left arm and felt a bit dizzy. Sometimes would last sometimes up to 20 minutes. Because of the recurrent nature of the presentation patient decided to come in. Patient was in and out of atrial fibrillation. Troponins were negative. Seen by cardiology. Patient to be discharged. Follow-up with his own sample examiner for outpatient stress test. This was discussed with the patient and . Consultation: Dr. Manjinder Wilkinson From cardiology Physical examination: VITAL SIGNS: 98.1, 50, 16, 132/88, 96% room air GENERAL: BMI 28.6, laying in bed, awake. EYES: Pupils equal. Conjunctiva normal. HEENT: External appearance of nose and ears normal, oral cavity grossly normal. NECK: JVD not raised; masses not palpable. HEART: First and second heart sounds are normal; no edema. LUNGS: Respiratory rate normal; slightly decreased breath sounds. ABDOMEN: Soft, nontender, liver spleen not palpable, no masses palpable. PSYCH: Alert and oriented x3; mood and affect normal. INVESTIGATIONS, reviewed in the clinical context: White count 7.1 hemoglobin 40.6 percussion for bun 21 creatinine 0.93 Troponin I 3 negative EKG tracing personally reviewed by me-atrial fibrillation with rate controlled Chest x-ray film personally reviewed by me-questionable some chronic changes Assessment: -Recurrent episodes of chest pain with some association with burping, probably could be a GI phenomena at the same time, given recurrence of atrial fibrillation need to rule out underlying coronary artery disease post or atypical presentation -Persistent atrial fibrillation -COPD in an ex-smoker -Chronic B12 deficiency -Essential hypertension Disposition: Home Patient Condition at Discharge: Stable Plan - Discharge Summary Discharge Rx Participant: No New Discharge Prescriptions: Continue Aspirin EC [Ecotrin Low Dose] 81 mg PO DAILY Budesonide/Formoterol Fumarate [Symbicort 160-4.5 Mcg Inhaler] 2 puff INHALATION RT-HS Esomeprazole Magnesium [NexIUM] 40 mg PO DAILY Sildenafil Citrate [Viagra] 50 mg PO DAILY PRN PRN Reason: ED Fluticasone Nasal [place] [Flonase Nasal [place]] 1 spr EA NOSTRIL HS Cyanocobalamin (Vitamin B-12) [Vitamin B-12] 500 mcg PO DAILY Chlorthalidone [Hygroton] 25 mg PO DAILY Albuterol Sulfate [Ventolin HFA] 1 - 2 puff INHALATION RT-Q6H PRN PRN Reason: Shortness Of Breath Anastrozole [Arimidex] 1 mg PO MOWEFR Discharge Medication List Aspirin EC [Ecotrin Low Dose] 81 mg PO DAILY 09/02/16 [History] Budesonide/Formoterol Fumarate [Symbicort 160-4.5 Mcg Inhaler] 2 puff INHALATION RT-HS 04/22/17 [History] Albuterol Sulfate [Ventolin HFA] 1 - 2 puff INHALATION RT-Q6H PRN 11/27/19 [History] Anastrozole [Arimidex] 1 mg PO MOWEFR 11/27/19 [History] Chlorthalidone [Hygroton] 25 mg PO DAILY 11/27/19 [History] Cyanocobalamin (Vitamin B-12) [Vitamin B-12] 500 mcg PO DAILY 11/27/19 [History] Esomeprazole Magnesium [NexIUM] 40 mg PO DAILY 11/27/19 [History] Fluticasone Nasal [place] [Flonase Nasal [place]] 1 spr EA NOSTRIL HS 11/27/19 [History] Sildenafil Citrate [Viagra] 50 mg PO DAILY PRN 11/27/19 [History] Follow up Appointment(s)/Referral(s): own-sample examinerdr [Other] - 3 Days Luis Alberto Davison MD [Primary Care Provider] - 1-2 days Patient Instructions/Handouts: Chest Pain (DC) Discharge Disposition: HOME SELF-CARE
== END 2019-11-28 14:41 | disposition home or self-care (01) ==
LOC: EC 15:43 → 1SOBS 18:21
PROVIDERS: ADMIT Hospitalist; ATTEND Hospitalist
DX: R07.89 Other chest pain (principal); I10 Essential (primary) hypertension; I48.0 Paroxysmal atrial fibrillation; E53.8 Deficiency of other specified B group vitamins; J44.9 Chronic obstructive pulmonary disease, unspecified; K21.9 Gastro-esophageal reflux disease without esophagitis; Z87.891 Personal history of nicotine dependence; Z98.49 Cataract extraction status, unspecified eye; Z79.82 Long term (current) use of aspirin; Z79.51 Long term (current) use of inhaled steroids; Z79.899 Other long term (current) drug therapy; Z88.5 Allergy status to narcotic agent
CPT/HCPCS: 93005 ×2; 96366 ×2; 96376 ×2; 96365; 99285; 36415; 94640 ×2; 83880; 80053; 83735; 84484 ×2; 85025 ×2; 85610; 85730 ×2; 71046; G0378 ×2; J1644 ×3

== ENCOUNTER → 2020-01-12 | Outpatient (CLI) | payer MEDICARE ==
[2020-01-12 16:50] LABS: African American GFR (CKD) 77.9 (60.0-200.0); Non-African American GFR(CKD) 67.2 (60.0-200.0)
== END | disposition home or self-care (01) ==
LOC: LABWHC1 08:39
PROVIDERS: ATTEND Internal Medicine Cardiovascular Disease
DX: R07.9 Chest pain, unspecified (principal)
CPT/HCPCS: 36415; 82565; 84520

== ENCOUNTER → 2020-07-01 | Outpatient (CLI) | payer MEDICARE | END | disposition home or self-care (01) | LOC: LABMAIN 19:35 | PROVIDERS: ATTEND Family Medicine | DX: Z53.9 Procedure and treatment not carried out, unspecified reason (principal) ==

== ENCOUNTER → 2021-04-14 | Outpatient (CLI) | payer MEDICARE ==
--- NOTE | 2021-04-14 09:10 | CTL ---
EXAMINATION TYPE: CT Low Dose Lung DATE OF EXAM ORDERED: 04/14/2021 HISTORY: Long-term tobacco use. Lung cancer screening CT DLP: 122.[address] CTDI: 3.30 mGy Automated exposure control for dose reduction was used. SCREENING VISIT: Second after baseline COMPARISON: Prior studies 2018 and 2017 TECHNIQUE: Low dose computed tomography scan was performed through the chest at 1 mm thick sections a nd reconstructed images in the coronal plane at [address] DIAGNOSTIC QUALITY: Satisfactory FINDINGS: LUNG NODULES: None. Of significance. Possible 2 mm subpleural nodule right midlung axial image 96 corresponding to sagittal image 57. LUNGS: COPD: Severity: Mild to moderate Fibrosis: Severity: Mild Lymph nodes: No greater than 1 cm noncalcified Other findings: None RIGHT PLEURAL SPACE: Effusion: None Calcification: None Thickening: None Pneumothorax: None LEFT PLEURAL SPACE: Effusion: None Calcification: None Thickening: None Pneumothorax: None HEART: Heart Size: Normal Coronary calcification: Focal mild to moderate Pericardial effusion: None OTHER FINDINGS: Upper abdomen: Fat replaced atrophy of the pancreas redemonstrated. Bony thorax: Exaggerated kyphosis with moderate multilevel spurring. Supraclavicular region: None Other: None IMPRESSION: No new significant nodules. CT LUNG RAD AND CT CHEST RECOMMENDATION: Lung-Rad 1 Negative: Continue annual screening with LDCT in 12 months. S Modifier (other clinically significant findings): None
== END | disposition home or self-care (01) ==
LOC: RADCTMAIN 08:17
PROVIDERS: ATTEND Internal Medicine Critical Care Medicine
DX: Z87.891 Personal history of nicotine dependence (principal)
CPT/HCPCS: 71271

== ENCOUNTER 2021-06-19 12:47 | Observation (INO) | payer MEDICARE ==
[2021-06-19] MEDS ORDERED: KETOROLAC 15 MG/ML 1 ML VIAL IVP STA (13:01)
[2021-06-19] MEDS ORDERED: HYDROmorphone 0.5 MG/0.5 ML SYRINGE IVP STA ×2 (13:01→16:38)
--- NOTE | 2021-06-19 13:16 | ED ---
General Adult HPI - General Chief complaint: Fall Stated complaint: Fall Time Seen by Provider: 06/19/21 12:55 Source: patient, EMS, RN notes reviewed, old records reviewed Mode of arrival: EMS Limitations: no limitations - History of Present Illness Initial comments: This is a 71-year-old male who presents emergency Department complaining that he stepped out of the shower and did the splits. Patient states the pain is so severe he can't even roll over in bed. Patient states the pain is at the medial upper aspect of his thigh and his upper posterior thigh as well as behind his left knee and on the medial aspect of his ankle. Patient denies any pain in the right side. Patient denies hitting his head patient denies any neck pain. Patient denies any chest or back pain. Patient is abdominal pain. - Related Data Home Medications Medication Instructions Recorded Confirmed Aspirin EC [Ecotrin Low Dose] 81 mg PO DAILY 09/02/16 11/27/19 Budesonide/Formoterol Fumarate 2 puff INHALATION RT-HS 04/22/17 11/27/19 [Symbicort 160-4.5 Mcg Inhaler] Albuterol Sulfate [Ventolin HFA] 1 - 2 puff INHALATION RT-Q6H PRN 11/27/19 11/27/19 Anastrozole [Arimidex] 1 mg PO MOWEFR 11/27/19 11/27/19 Chlorthalidone [Hygroton] 25 mg PO DAILY 11/27/19 11/27/19 Cyanocobalamin (Vitamin B-12) 500 mcg PO DAILY 11/27/19 11/27/19 [Vitamin B-12] Esomeprazole Magnesium [NexIUM] 40 mg PO DAILY 11/27/19 11/27/19 Fluticasone Nasal [place] [Flonase 1 spr EA NOSTRIL HS 11/27/19 11/27/19 Nasal [place]] Sildenafil Citrate [Viagra] 50 mg PO DAILY PRN 11/27/19 11/27/19 Allergies Allergy/AdvReac Type Severity Reaction Status Date / Time tramadol HCl [From Ultram] Allergy Severe Unknown Verified 06/19/21 17:48 Review of Systems ROS Statement: Those systems with pertinent positive or pertinent negative responses have been documented in the HPI. ROS Other: All systems not noted in ROS Statement are negative. Past Medical History Past Medical History: Atrial Fibrillation, Asthma, COPD History of Any Multi-Drug Resistant Organisms: None Reported Past Surgical History: Hernia Repair, Orthopedic Surgery Additional Past Surgical History / Comment(s): ablation 2015/ wrist / rotator cuff x2/ detatched retina/cataract Past Anesthesia/Blood Transfusion Reactions: Postoperative Nausea & Vomiting (PONV) Past Psychological History: No Psychological Hx Reported Smoking Status: Never smoker Past Alcohol Use History: Daily Past Drug Use History: None Reported General Exam - General Exam Comments Initial Comments: GENERAL Patient is well-developed and well-nourished. Patient is in mild distress. EYES Patient's pupils are equal and round. SKIN Unremarkable NEURO The patient is alert and oriented 3 PYSCH Patient has normal interpersonal interactions. MUSCULOSKELETAL Patient has tenderness at the posterior and lateral aspect of his left thigh some pain behind the left knee and some minimal pain in the medial ankle. Limitations: no limitations Course Vital Signs 06/19/21 12:52 Temperature 98.4 F Pulse Rate 78 Respiratory 18 Rate Blood Pressure 115/67 O2 Sat by Pulse 98 Oximetry Medical Decision Making - Medical Decision Making We try to get the patient up and he was unable to ambulate with assistance. X-rays of the hip and pelvis knee and ankle are all negative for fracture. I spoke with Dr. Marion and he agreed to admit the patient admitted the patient I wrote admitting orders I consulted orthopedics Disposition Clinical Impression: Fall, Hamstring injury Disposition: ADMITTED IP TO THIS HOSP Referrals: Luis Alberto Davison MD [Primary Care Provider] - 1-2 days Time of Disposition: 17:55
--- NOTE | 2021-06-19 14:25 | XR ---
EXAMINATION TYPE: XR knee complete LT DATE OF EXAM: 06/19/2021 COMPARISON: None HISTORY: Trauma, pain TECHNIQUE: 4 view left knee FINDINGS: There is mild narrowing in the medial compartment joint space. Anterior superior patellar s purring is present. No joint effusion is evident. No acute fractures or dislocations are evident. Follow up exams can be performed 7-10 days from acute trauma for continued pain. IMPRESSION: 1. Mild degenerative changes left knee
--- NOTE | 2021-06-19 14:27 | XR ---
EXAMINATION TYPE: XR ankle complete LT DATE OF EXAM: 06/19/2021 COMPARISON: None HISTORY: Trauma, pain TECHNIQUE: 3 view left ankle FINDINGS: Ankle mortise is intact. No acute fracture or dislocation is evident. Old fracture of the m edial malleolus is not excluded. Cortical margins appear smooth however. Soft tissues appear normal. Calcaneal heel spurs are present. There is a spur from the base of fifth metatarsal. Follow up exams can be performed 7-10 days from acute trauma for continued pain. IMPRESSION: 1. No acute osseous abnormality left ankle
--- NOTE | 2021-06-19 14:29 | XR ---
EXAMINATION TYPE: XR Hip LT and AP Pelvis DATE OF EXAM: 06/19/2021 COMPARISON: None HISTORY: Trauma fall in shower TECHNIQUE: AP pelvis and two-view left hip FINDINGS: Femoral heads articulate with the acetabulum. Joint spaces are mildly narrowed. Sacroiliac joints and symphysis pubis are normal. 2 views of the left hip are obtained. No acute fracture or dislocation is evident. IMPRESSION: 1. Mild degenerative changes left hip.
[2021-06-19] MEDS ORDERED: SODIUM CHLORIDE 0.9% 1,000 ML IV ONE (17:55)
[2021-06-19] MEDS ORDERED: HYDROmorphone 0.5 MG/0.5 ML SYRINGE IVP PRN (17:57)
[2021-06-19] MEDS ORDERED: ONDANSETRON 4 MG/2 ML VIAL IVP STA (17:59)
[2021-06-19] MEDS ORDERED: ONDANSETRON 4 MG/2 ML VIAL IVP PRN (18:01)
[2021-06-19] MEDS: KETOROLAC 15 MG/ML 1 ML VIAL IVP SCH (18:03)
[2021-06-19] MEDS ORDERED: ALBUTEROL HFA INHALER INHALATION PRN (18:29)
[2021-06-19] MEDS ORDERED: HYDROcodone/APAP 5-325MG 1 EACH TAB PO PRN (18:29)
[2021-06-19] MEDS ORDERED: RIVAROXABAN 10 MG TAB PO SCH (18:30)
--- NOTE | 2021-06-19 18:35 | P.HPIM ---
History of Present Illness H&P Date: 06/19/21 Chief Complaint: Left thigh pain This is a 71-year-old male with past medical history noted below presented to the emergency room with severe left lower extremity pain. Patient said that he slipped walking out of the shower this morning and landed in a split position. He said since then he's been having extreme pain involving his left thigh in the posterior aspect as well as his left knee. He is unable to get up. The pain is not too bad when he's laying stated that as soon as he starts moving even turning in bed his pain is 10 out of 10 in severity. He was evaluated in the ER and extensive imaging was done that was unrevealing. Patient will be placed on observation for further management. Review of Systems Review of system: 14 points review of systems were obtained and were negative except to what were mentioned in the HPI. Past Medical History Past Medical History: Atrial Fibrillation, Asthma, COPD History of Any Multi-Drug Resistant Organisms: None Reported Past Surgical History: Hernia Repair, Orthopedic Surgery Additional Past Surgical History / Comment(s): ablation 2015/ wrist / rotator cuff x2/ detatched retina/cataract Past Anesthesia/Blood Transfusion Reactions: Postoperative Nausea & Vomiting (PONV) Past Psychological History: No Psychological Hx Reported Smoking Status: Never smoker Past Alcohol Use History: Daily Past Drug Use History: None Reported Medications and Allergies Home Medications Medication Instructions Recorded Confirmed Type Albuterol Sulfate [Ventolin HFA] 2 puff INHALATION RT-Q6H PRN 11/27/19 06/19/21 History Chlorthalidone [Hygroton] 12.5 mg PO DAILY 11/27/19 06/19/21 History Esomeprazole Magnesium [NexIUM] 40 mg PO DAILY 11/27/19 06/19/21 History Fluticasone Nasal [place] [Flonase 2 spr EA NOSTRIL HS 11/27/19 06/19/21 History Nasal [place]] Sildenafil Citrate [Viagra] 50 - 100 mg PO DAILY PRN 11/27/19 06/19/21 History Atorvastatin Calcium [Lipitor] 40 mg PO HS 06/19/21 06/19/21 History Budesonide/Glycopyr/Formoterol 2 puff INHALATION RT-HS 06/19/21 06/19/21 History [Breztri Aerosphere Inhaler] Cyanocobalamin [Vitamin B-12] 500 mcg PO DAILY 06/19/21 06/19/21 History Rivaroxaban [Xarelto] 10 mg PO Q48H 06/19/21 06/19/21 History Rivaroxaban [Xarelto] 20 mg PO Q4D 06/19/21 06/19/21 History Allergies Allergy/AdvReac Type Severity Reaction Status Date / Time tramadol HCl [From Ultram] Allergy Severe Unknown Verified 06/19/21 18:04 Physical Exam Vitals: Vital Signs Temp Pulse Resp BP Pulse Ox 06/19/21 18:03 97.6 F 88 16 120/76 96 06/19/21 12:52 98.4 F 78 18 115/67 98 Intake and Output 06/19/21 06/19/21 06/19/21 06:59 14:59 22:59 Other: Weight 97.522 kg General: The patient is awake and alert, in no distress Eye: there is normal conjunctiva bilaterally. Neck: The neck is supple, there is no JVD. Cardiovascular: Normal S1-S2, no S3-S4, no murmurs. Respiratory: Lungs clear to auscultation bilaterally Gastrointestinal: Abdomen is soft, nontender Musculoskeletal: There is no pedal edema. Neurological:. Speech is normal. Skin: Skin is warm and dry Assessment and Plan Assessment: 1. Left lower extremity pain involving the posterior aspect of the left thigh, probably attributed to muscle injury secondary to fall/overstretching of the muscle. Multiple x-rays done in the ER was unremarkable for fractures. Orthopedic consulted for further evaluation. 2. History of atrial fibrillation status post ablation on anticoagulation with Rivaroxaban 3. Essential hypertension, blood pressure within acceptable range Today, I reviewed his medication list. I would add Flexeril 5 mg 3 times a day. Patient is getting IV ketorolac scheduled every 6 hours. [place] as needed for pain. PT/OT evaluation.
[2021-06-19 19:14] LABS: Basophils # (A) 0.1 k/uL (0-0.2); Basophils % (A) 1 %; Eosinophils # (A) 0.1 k/uL (0-0.7); Eosinophils % (A) 1 %; HCT 40.6 % (39.0-53.0); HGB 13.8 gm/dL (13.0-17.5); Lymphocytes # (A) 0.8 k/uL (1.0-4.8); Lymphocytes % (A) 10 %; MCH 31.3 pg (25.0-35.0); MCHC 33.9 g/dL (31.0-37.0); MCV 92.4 fL (80.0-100.0); Mean Platelet Volume 8.8; Monocytes # (A) 0.4 k/uL (0-1.0); Monocytes % (A) 5 %; Neutrophils # (A) 6.2 k/uL (1.3-7.7); Neutrophils % (A) 82 %; Platelet Count 150 k/uL (150-450); RDW 13.2 % (11.5-15.5); WBC 7.6 k/uL (3.8-10.6)
[2021-06-19 19:26] LABS: African American GFR (CKD) >90 (>60 ml/min/1.73 sqM); Anion Gap 8 mmol/L; Blood Urea Nitrogen 17 mg/dL (9-20); Calcium 8.9 mg/dL (8.4-10.2); Carbon Dioxide 27 mmol/L (22-30); Chloride 98 mmol/L (98-107); Glucose 128 mg/dL (74-99); Non-African American GFR(CKD) 88 (>60 ml/min/1.73 sqM); Potassium 3.4 mmol/L (3.5-5.1); Sodium 133 mmol/L (137-145)
[2021-06-19] MEDS: CYCLOBENZAPRINE 5 MG TAB PO SCH ×2 (19:56→21:57)
[2021-06-19] MEDS ORDERED: NON FORMULARY DRUG (Budesonide/Glycopyr/Formoterol [Breztri Aerosphere Inhaler] 10.7 GM Hf INHALATION SCH (20:00)
[2021-06-19] MEDS ORDERED: FLUTICASONE 50MCG/SPRAY NASAL 16GM EA NOSTRIL SCH (21:00)
[2021-06-20] MEDS: KETOROLAC 15 MG/ML 1 ML VIAL IVP SCH ×3 (00:36→09:21)
[2021-06-20] MEDS: POTASSIUM CHLORIDE ER 20 MEQ TAB.ER PO SCH ×2 (05:02→06:00)
[2021-06-20] MEDS ORDERED: PANTOPRAZOLE 40 MG TABLET PO SCH (07:30)
[2021-06-20 07:54] VITALS: RESP 16
[2021-06-20] MEDS ORDERED: POTASSIUM CHLORIDE ER 20 MEQ TAB.ER PO ONE (08:00)
[2021-06-20] MEDS ORDERED: RIVAROXABAN 20 MG TAB PO SCH (09:00)
[2021-06-20] MEDS ORDERED: CHLORTHALIDONE 25 MG TAB PO SCH (09:00)
[2021-06-20] MEDS ORDERED: CYANOCOBALAMIN 500 MCG TAB PO SCH (09:00)
[2021-06-20] MEDS: CYCLOBENZAPRINE 5 MG TAB PO SCH (09:20)
--- NOTE | 2021-06-20 10:43 | P.CNOR ---
History of Present Illness - [facility] Consult date: 06/20/21 Consult reason: other (Left posterior thigh/buttock pain) History of present illness: The patient is a 71-year-old male who presents after falling getting out of the shower yesterday at home with significant left posterior thigh and buttock pain with attempted ambulation. Normally he ambulates without assistive devices. He had no loss of consciousness. He was admitted because of inability to ambulate without severe pain. Review of Systems Musculoskeletal: left: ankle pain (Medial), hip pain (Posterior) Past Medical History Past Medical History: Atrial Fibrillation, Asthma, COPD History of Any Multi-Drug Resistant Organisms: None Reported Past Surgical History: Hernia Repair, Orthopedic Surgery Additional Past Surgical History / Comment(s): ablation 2015/ wrist / rotator cuff x2/ detatched retina/cataract, sx on hammer toe on left foot Past Anesthesia/Blood Transfusion Reactions: Postoperative Nausea & Vomiting (PONV) Past Psychological History: No Psychological Hx Reported Smoking Status: Former smoker Past Alcohol Use History: Daily Past Drug Use History: None Reported Medications and Allergies Home Medications Medication Instructions Recorded Confirmed Type Albuterol Sulfate [Ventolin HFA] 2 puff INHALATION RT-Q6H PRN 11/27/19 06/19/21 History Chlorthalidone [Hygroton] 12.5 mg PO DAILY 11/27/19 06/19/21 History Esomeprazole Magnesium [NexIUM] 40 mg PO DAILY 11/27/19 06/19/21 History Fluticasone Nasal [place] [Flonase 2 spr EA NOSTRIL HS 11/27/19 06/19/21 History Nasal [place]] Sildenafil Citrate [Viagra] 50 - 100 mg PO DAILY PRN 11/27/19 06/19/21 History Atorvastatin Calcium [Lipitor] 40 mg PO HS 06/19/21 06/19/21 History Budesonide/Glycopyr/Formoterol 2 puff INHALATION RT-HS 06/19/21 06/19/21 History [Breztri Aerosphere Inhaler] Cyanocobalamin [Vitamin B-12] 500 mcg PO DAILY 06/19/21 06/19/21 History Rivaroxaban [Xarelto] 10 mg PO Q48H 06/19/21 06/19/21 History Rivaroxaban [Xarelto] 20 mg PO Q4D 06/19/21 06/19/21 History Allergies Allergy/AdvReac Type Severity Reaction Status Date / Time tramadol HCl [From Ultram] Allergy Severe Unknown Verified 06/19/21 18:04 Physical Examination - Hip left Tenderness with palpation: posterior (Proximal lateral hamstring) Full ROM: yes ROM: extension: normal ROM: flexion: normal Crepitus with motion: No Strength: extension: 5/5 Strength: flexion: 5/5 Strength: abduction: 5/5 Strength: adduction: 5/5 Strength: internal rotation: 5/5 Strength: external rotation: 5/5 Tests: impingement tests: negative, instability tests: negative Results Alert and oriented 4 Nontender cervical, thoracic, and lumbar spine No point tenderness bilateral upper extremities Pelvis stable to external rotation stress Painless passive motion left hip Pain with full knee extension with the hip flexed over the proximal posterior thigh Nontender ischial tuberosity Nontender left knee medial and lateral joint line Left knee stable to varus and valgus stress Negative [place] left knee Left quadriceps strength 5/5, hamstring strength 4 minus/5 with pain Left ankle motion 20 dorsiflexion/50 plantar flexion Mild tenderness over the medial left ankle over the posterior tibial tendon Left ankle inversion 5/5 No mid or forefoot tenderness Distal neurovascular exam intact left lower extremity - Labs Labs: Abnormal Lab Results - Last 24 Hours (Table) 06/19/21 06/19/21 Range/Units 19:02 19:02 Lymphocytes # 0.8 L (1.0-4.8) k/uL Sodium 133 L (137-145) mmol/L Potassium 3.4 L (3.5-5.1) mmol/L Glucose 128 H (74-99) mg/dL H & H 06/19/21 Range/Units 19:02 Hgb 13.8 (13.0-17.5) gm/dL Hct 40.6 (39.0-53.0) % Result Diagrams: 06/19/21 19:02 06/19/21 19:02 - Diagnostic results Hip x-ray: image reviewed (No definite displaced fracture) Knee x-ray: image reviewed (No definite displaced fracture) Ankle/Foot x-ray: image reviewed (No definite displaced fracture/mortise intact) Assessment and Plan Assessment: Left proximal hamstring strain Left ankle posterior tibial tendon strain Plan: I talked to the patient regarding his conditions and recommend conservative stephanie ures. We will order formal therapy to work on gait training with a walker. He can weight-bear as tolerated with walker. Recommend continue analgesia as needed. We will continue to monitor. Time with Patient: Greater than 30
[2021-06-20 11:13] VITALS: BMI 28.3
--- NOTE | 2021-06-20 12:26 | P.DS ---
Providers Date of admission: 06/19/21 17:55 Expected date of discharge: 06/20/21 Attending physician: Robbin Marion Consults: 06/19/21 17:55 Consult Physician Urgent Consulting Provider: Jeremy Puente Consult Reason/Comments: Hamstring injury Do you want consulting provider notified?: Yes 06/20/21 09:12 Consult Physician Routine Consulting Provider: Marcus Castillo Consult Reason/Comments: hamstring injury Do you want consulting provider notified?: Yes Primary care physician: [place] Hospital Course: This is a 71-year-old male with past medical history noted below who presented to the emergency room after he sustained a fall at home while getting out of the shower and subsequently was having a lot of pain in the posterior aspect of his left eye. He was evaluated in the ER and placed on observation for further management of his medical problems noted below. 1. Left lower extremity pain involving the posterior aspect of the left thigh, probably left proximal hamstring strain. Multiple x-rays done in the ER was unremarkable for fractures. Orthopedic consulted for further evaluation. 2. History of atrial fibrillation status post ablation on anticoagulation with Rivaroxaban 3. Essential hypertension, blood pressure within acceptable range Patient was seen and evaluated by orthopedics and PT. Conservative management recommended. Short course of Motrin as needed to be taken with food. Flexeril as needed for muscle pain. Patient will be provided with a walker. He will be discharged home in a stable condition. He was seen and evaluated by me on the day of discharge. He is feeling better. He is comfortable to go home and agreeable to the plan. Plan - Discharge Summary Discharge Rx Participant: No New Discharge Prescriptions: New Ibuprofen [Motrin] 800 mg PO Q8H PRN #15 tab PRN Reason: Pain Cyclobenzaprine [Flexeril] 5 mg PO TID PRN #15 tablet PRN Reason: Muscle Pain Continue Esomeprazole Magnesium [NexIUM] 40 mg PO DAILY Sildenafil Citrate [Viagra] 50 - 100 mg PO DAILY PRN PRN Reason: ED Fluticasone Nasal [place] [Flonase Nasal [place]] 2 spr EA NOSTRIL HS Chlorthalidone [Hygroton] 12.5 mg PO DAILY Albuterol Sulfate [Ventolin HFA] 2 puff INHALATION RT-Q6H PRN PRN Reason: Shortness Of Breath Rivaroxaban [Xarelto] 20 mg PO Q4D Rivaroxaban [Xarelto] 10 mg PO Q48H Atorvastatin Calcium [Lipitor] 40 mg PO HS Budesonide/Glycopyr/Formoterol [Breztri Aerosphere Inhaler] 2 puff INHALATION RT-HS Cyanocobalamin [Vitamin B-12] 500 mcg PO DAILY Discharge Medication List Albuterol Sulfate [Ventolin HFA] 2 puff INHALATION RT-Q6H PRN 11/27/19 [History] Chlorthalidone [Hygroton] 12.5 mg PO DAILY 11/27/19 [History] Esomeprazole Magnesium [NexIUM] 40 mg PO DAILY 11/27/19 [History] Fluticasone Nasal [place] [Flonase Nasal [place]] 2 spr EA NOSTRIL HS 11/27/19 [History] Sildenafil Citrate [Viagra] 50 - 100 mg PO DAILY PRN 11/27/19 [History] Atorvastatin Calcium [Lipitor] 40 mg PO HS 06/19/21 [History] Budesonide/Glycopyr/Formoterol [Breztri Aerosphere Inhaler] 2 puff INHALATION RT-HS 06/19/21 [History] Cyanocobalamin [Vitamin B-12] 500 mcg PO DAILY 06/19/21 [History] Rivaroxaban [Xarelto] 10 mg PO Q48H 06/19/21 [History] Rivaroxaban [Xarelto] 20 mg PO Q4D 06/19/21 [History] Cyclobenzaprine [Flexeril] 5 mg PO TID PRN #15 tablet 06/20/21 [Rx] Ibuprofen [Motrin] 800 mg PO Q8H PRN #15 tab 06/20/21 [Rx] Follow up Appointment(s)/Referral(s): Luis Alberto Davison MD [Primary Care Provider] - 1-2 days Discharge Disposition: HOME SELF-CARE
[2021-06-20 12:41] LABS: African American GFR (CKD) 86.2 (60.0-200.0); Anion Gap 8.6 mmol/L (4.00-12.00); Calcium 8.4 mg/dL (8.7-10.3); Carbon Dioxide 27.4 mmol/L (21.6-31.8); Non-African American GFR(CKD) 74.3 (60.0-200.0); Potassium 3.7 mmol/L (3.5-5.5)
[2021-06-20 14:39] VITALS: BP 119/72; PULSE 75; TEMP 98.3
== END 2021-06-20 15:05 | disposition home or self-care (01) ==
LOC: EC 12:47 → 6NMEDSUR 17:55
PROVIDERS: ADMIT Internal Medicine; ATTEND Internal Medicine
DX: S76.312A Strain of muscle, fascia and tendon of the posterior muscle group at thigh level, left thigh, initial encounter (principal); S86.112A Strain of other muscle(s) and tendon(s) of posterior muscle group at lower leg level, left leg, initial encounter; I48.91 Unspecified atrial fibrillation; J44.9 Chronic obstructive pulmonary disease, unspecified; M77.32 Calcaneal spur, left foot; I10 Essential (primary) hypertension; Z79.01 Long term (current) use of anticoagulants; Z79.82 Long term (current) use of aspirin; Z79.51 Long term (current) use of inhaled steroids; Z79.899 Other long term (current) drug therapy; Z88.5 Allergy status to narcotic agent; Z87.891 Personal history of nicotine dependence; Z98.49 Cataract extraction status, unspecified eye; Z86.69 Personal history of other diseases of the nervous system and sense organs; Z98.890 Other specified postprocedural states; W18.2XXA Fall in (into) shower or empty bathtub, initial encounter; Y93.E1 Activity, personal bathing and showering; Y92.002 Bathroom of unspecified non-institutional (private) residence as the place of occurrence of the external cause
CPT/HCPCS: 96376 ×2; 96361 ×3; 96374; 96375; 99285; 97162; 80048 ×2; 85025; 73502; 73562; 73610; G0378 ×2; J2405; J1885 ×2; J1170

== ENCOUNTER 2021-12-22 08:01 | Emergency (ER) | payer MEDICARE ==
--- NOTE | 2021-12-22 08:40 | ED ---
General Adult HPI - General Chief complaint: Fall Stated complaint: Fall Time Seen by Provider: 12/22/21 08:05 Source: patient, RN notes reviewed, old records reviewed Mode of arrival: ambulatory Limitations: no limitations - History of Present Illness Initial comments: This is a 71-year-old male who presents emergency Department accompanied left sided rib pain. Patient states he fell hit the left side of his ribs and now it hurts take a deep breath per patient states he is not short of breath. Patient denies any anterior chest pain. Patient denies any back pain. Patient denies any neck or head pain. Patient states he has no extremity pain. Patient denies any abdominal pain. - Related Data Home Medications Medication Instructions Recorded Confirmed Chlorthalidone [Hygroton] 12.5 mg PO DAILY 11/27/19 12/22/21 Esomeprazole Magnesium [NexIUM] 20 mg PO DAILY 11/27/19 12/22/21 Cyanocobalamin [Vitamin B-12] 500 mcg PO DAILY 06/19/21 12/22/21 Rivaroxaban [Xarelto] 20 mg PO DAILY 06/19/21 12/22/21 Previous Rx's Medication Instructions Recorded Ketorolac [Toradol] 10 mg PO Q6HR #15 tab 12/22/21 Allergies Allergy/AdvReac Type Severity Reaction Status Date / Time tramadol HCl [From [facility]] Allergy Severe See Verified 12/22/21 09:51 Comments Review of Systems ROS Statement: Those systems with pertinent positive or pertinent negative responses have been documented in the HPI. ROS Other: All systems not noted in ROS Statement are negative. Past Medical History Past Medical History: Atrial Fibrillation, Asthma, COPD History of Any Multi-Drug Resistant Organisms: None Reported Past Surgical History: Hernia Repair, Orthopedic Surgery Additional Past Surgical History / Comment(s): ablation 2015/ wrist / rotator cuff x2/ detatched retina/cataract, sx on hammer toe on left foot Past Anesthesia/Blood Transfusion Reactions: Postoperative Nausea & Vomiting (PONV) Past Psychological History: No Psychological Hx Reported Smoking Status: Former smoker Past Alcohol Use History: Daily Past Drug Use History: None Reported General Exam - General Exam Comments Initial Comments: GENERAL: Patient is well-developed and well-nourished. Patient is nontoxic and well- hydrated and is in mild distress. ENT: Neck is soft and supple. No significant lymphadenopathy is noted. Oropharynx is clear. Moist mucous membranes. Neck has full range of motion without eliciting any pain. EYES: The sclera were anicteric and conjunctiva were pink and moist. Extraocular movements were intact and pupils were equal round and reactive to light. Eyelids were unremarkable. PULMONARY: Unlabored respirations. Good breath sounds bilaterally. No audible rales rhonchi or wheezing was noted. CARDIOVASCULAR: There is a regular rate and rhythm without any murmurs gallops or rubs. Left- sided ribs are tender laterally ABDOMEN: Soft and nontender with normal bowel sounds. SKIN: Skin is clear with no lesions or rashes and otherwise unremarkable. NEUROLOGIC: Patient is alert and oriented x3. Cranial nerves II through XII are grossly intact. Motor and sensory are also intact. Normal speech, volume and content. Symmetrical smile. MUSCULOSKELETAL: Normal extremities with adequate strength and full range of motion. Patient's left anterior shoulder has tenderness. He does have full range of motion LYMPHATICS: No significant lymphadenopathy is noted PSYCHIATRIC: Normal psychiatric evaluation. Limitations: no limitations Course Vital Signs 12/22/21 08:08 Temperature 97.9 F Pulse Rate 73 Respiratory 20 Rate Blood Pressure 166/88 O2 Sat by Pulse 98 Oximetry Medical Decision Making - Medical Decision Making Chest x-ray shows a left-sided rib fracture at rib 5 and rib 6. No pneumothorax was noted. Patient is not having any difficulty breathing at this time. Disposition Clinical Impression: Rib fractures Disposition: HOME SELF-CARE Condition: Good Instructions (If sedation given, give patient instructions): Fall Prevention for Older Adults (ED), Rib Fracture (ED) Prescriptions: Ketorolac [Toradol] 10 mg PO Q6HR #15 tab Is patient prescribed a controlled substance at d/c from ED?: No Referrals: Luis Alberto Davison MD [Primary Care Provider] - 1-2 days Time of Disposition: 10:26
[2021-12-22] MEDS ORDERED: KETOROLAC 15 MG/ML 1 ML VIAL IM STA (09:36)
--- NOTE | 2021-12-22 09:52 | XR ---
EXAMINATION TYPE: XR ribs LT w pa chest xray DATE OF EXAM: 12/22/2021 COMPARISON: 11/27/2019 HISTORY: Trauma, left shoulder pain and left rib pain TECHNIQUE: Chest is examined in the frontal projection. Left ribs are examined in 2 views each FINDINGS: No pneumothorax is evident. Heart size is normal. Pulmonary vasculature is normal. There is a displaced rib fracture of the lateral fifth rib. A nondisplaced sixth rib fractures not ex cluded. No additional fractures are identified. IMPRESSION: 1. Fracture of the lateral fifth rib and possible nondisplaced fracture sixth rib.
--- NOTE | 2021-12-22 09:55 | XR ---
EXAMINATION TYPE: XR shoulder complete LT DATE OF EXAM: 12/22/2021 COMPARISON: NONE HISTORY: Pain, slipped on ice, fall TECHNIQUE: Shoulder examined in 3 views FINDINGS: The humeral head articulates with the glenoid. No humeral joint space is narrow compatible with osteo arthritic degenerative change. Some intra-articular capsular calcification may be present medially. The acromio-clavicular junction is widened. Correlate for prior surgery. No depression to suggest acu te separation is identified. This could be a chronic separation. No acute fractures or dislocations are evident of the shoulder are evident. The patient has known lef t fifth rib fracture is evident. A follow up study can be performed 7-10 days from acute trauma for continued pain. IMPRESSION: 1. Known fifth left rib fracture. 2. Osteoarthritic degenerative change left shoulder. 3. Chronic acromioclavicular joint separation may be present.
[2021-12-22] MEDS ORDERED: ACET/COD 300 MG/30 MG STARTER PACK 6 TAB BTL PO STA (10:26)
[2021-12-22 10:36] VITALS: BP 138/78; PULSE 90; RESP 16; TEMP 98
== END 2021-12-22 10:39 | disposition home or self-care (01) ==
LOC: EC 08:01
DX: S22.39XA Fracture of one rib, unspecified side, initial encounter for closed fracture (principal); J45.909 Unspecified asthma, uncomplicated; Z87.891 Personal history of nicotine dependence; Z88.5 Allergy status to narcotic agent; W19.XXXA Unspecified fall, initial encounter
CPT/HCPCS: 99284; 96372; 71101; 73030; J1885

== ENCOUNTER → 2024-08-25 | Outpatient (CLI) | payer MEDICARE ==
--- NOTE | 2024-08-27 11:26 | CTL ---
EXAMINATION TYPE: CT Low Dose Lung DATE OF EXAM: 08/25/2024 9:55 AM CLINICAL INDICATION: Male, 74 years old with history of Z87.891 personal hx tobacco use; former smok er, quit 10 years. smoked 1 PPD x38 years. , history of tobacco use. COMPARISON: 04/14/2021 TECHNIQUE: Multiple axial non-contrast scans were obtained from approximately the lung apices through the upper abdomen. Coronal and sagittal reformatted images were obtained. Low dose technique was uti lized. MIP were created on a separate workstation and submitted for review. CT DLP: 133.3 mGycm, Automated exposure control for dose reduction was used. CT Contrast: Contrast used: None Oral contrast used: None FINDINGS: ======== Lack of intravenous contrast and low dose technique limits the evaluation of the vascular and soft ti ssue structures. LUNGS: No evidence of pulmonary fibrosis. No evidence of focal consolidation, pneumothorax or pleural effusion. Centrilobular emphysema changes. Nodules: RUL: None. RML: None. RLL: None. SAHIL: None. LLL: None. AIRWAY: Patent and unremarkable. HEART: Size within normal limits. MEDIASTINUM: No gross evidence of adenopathy. VASCULATURE: No aortic aneurysm. MUSCULOSKELETAL: Mild disc degeneration changes are present throughout the thoracolumbar spine. SOFT TISSUES/LYMPH NODES: Unremarkable. LOWER NECK: No significant findings. UPPER ABDOMEN: No significant findings. IMPRESSION: 1. No clinically significant pulmonary nodules. 2. Mild emphysema. CT LUNG RAD AND CT CHEST RECOMMENDATION: Lung-Rad 2 Benign Appearance or Behavior: Continue annual sc reening with LDCT in 12 months. S Modifier (other clinically significant findings): None Recommend smoking cessation (if current smoker), or continuation of smoking cessation (if prior smoke r). Annual screening for lung cancer with low-dose computed tomography is recommended in adults ages 55 to 77 years who have a 30 pack-year smoking history and currently smoke or have quit within the pa st 15 years. Screening should be discontinued once a person has not smoked for 15 years or develops a health problem that substantially limits life expectancy or the ability or willingness to have curat orin lung surgery. Lung rads 2021 [email or web address] [facility], , 08/27/2024 11:24 AM
== END | disposition home or self-care (01) ==
LOC: RADCTMAIN 09:12
PROVIDERS: ATTEND Internal Medicine Critical Care Medicine
DX: Z87.891 Personal history of nicotine dependence
CPT/HCPCS: 71271

== ENCOUNTER 2024-12-30 09:21 | Day surgery (SDC) | payer MEDICARE ==
[2024-12-30] MEDS: IV FLUID CONTINUATION 1,000 ML IV ONE (09:50)
[2024-12-30] MEDS: LIDOCAINE 1% (10MG/ML) FOR IV START INTRADERMA STA (09:50)
[2024-12-30] MEDS: LACTATED RINGERS 1,000 ML IV SCH (09:50)
[2024-12-30 09:54] VITALS: RESP 16; TEMP 97.3
[2024-12-30] MEDS ORDERED: PROPOFOL 10 MG/ML 20 ML VIAL IV ONE (10:17)
--- NOTE | 2024-12-30 10:34 | P.PCN ---
Date of Procedure: 12/30/24 Procedure(s) Performed: BRIEF HISTORY: Patient is a 74-year-old pleasant white male scheduled for an elective colonoscopy as a part of evaluation of intermittent rectal bleeding. PROCEDURE PERFORMED: Colonoscopy. PREOPERATIVE DIAGNOSIS: Rectal bleeding. IV sedation per Anesthesia. PROCEDURE: After informed consent was obtained, the patient, was brought into the endoscopy unit. IV sedation was administered by Anesthesia under continuous monitoring. Digital rectal examination was normal. Initially the Olympus CF-160 flexible video colonoscope was then inserted in the rectum, gradually advanced into the cecum without any difficulty. Careful examination was performed as the scope was gradually being withdrawn. Ileocecal valve and the appendiceal orifice were visualized and appeared normal. Prep was excellent. Mucosa of the cecum, ascending colon, transverse colon, descending colon, sigmoid colon, and rectum appeared normal. Diffuse scattered diverticulosis noted more prominent in the left colon. Retroflexion was performed in the rectum and grade 2 internal hemorrhoid were seen. The patient tolerated the procedure well. IMPRESSION: Diffuse diverticulosis throughout the colon more predominant in the left colon. Grade 2 internal hemorrhoids RECOMMENDATIONS: Findings of this examination were discussed with the patient as well as his family. He was advised to be on a high-fiber diet and take fiber supplements on a regular basis. Avoid straining and constipation.
[2024-12-30 11:10] VITALS: BP 123/69; PULSE 60
== END 2024-12-30 11:20 | disposition home or self-care (01) ==
LOC: ORWHC2ENDO 09:21
PROVIDERS: ATTEND Internal Medicine Gastroenterology
DX: K64.1 Second degree hemorrhoids (principal); K57.30 Diverticulosis of large intestine without perforation or abscess without bleeding; I48.91 Unspecified atrial fibrillation; E78.5 Hyperlipidemia, unspecified; J44.89 Other specified chronic obstructive pulmonary disease; K21.9 Gastro-esophageal reflux disease without esophagitis; F10.90 Alcohol use, unspecified, uncomplicated; Z79.01 Long term (current) use of anticoagulants; Z79.899 Other long term (current) drug therapy; Z88.6 Allergy status to analgesic agent
CPT/HCPCS: 45378; J2704

== ENCOUNTER → 2025-01-21 | Outpatient (CLI) | payer MEDICARE ==
--- NOTE | 2025-01-21 10:53 | XR ---
EXAMINATION TYPE: XR chest 2V DATE OF EXAM: 01/21/2025 10:33 AM COMPARISON: Chest radiographs from 12/22/2021 CLINICAL INDICATION: Male, 74 years old with history of J18.9 pneumonia; [facility] TECHNIQUE: XR chest 2V Frontal and lateral views of the chest. FINDINGS: Lungs/Pleura: There is no evidence of pleural effusion, focal consolidation, or pneumothorax. Pulmonary vascularity: Unremarkable. Heart/mediastinum: Cardiomediastinal silhouette is unremarkable. Musculoskeletal: No acute osseous pathology. IMPRESSION: No acute cardiopulmonary disease/process. [facility], , 01/21/2025 10:51 AM
== END | disposition home or self-care (01) ==
LOC: RADXRMAIN 10:22
PROVIDERS: ATTEND Internal Medicine Critical Care Medicine
DX: J18.9 Pneumonia, unspecified organism (principal)
CPT/HCPCS: 71046

== ENCOUNTER → 2025-04-29 | Outpatient (CLI) | payer MEDICARE ==
[2025-04-29 15:12] LABS: Basophils # (A) 0.09 X 10*3/uL (0.00-0.10); Basophils % (A) 1.2 %; HCT 40.7 % (39.6-50.0); HGB 13.5 g/dL (13.0-17.0); Lymphocytes # (A) 0.96 X 10*3/uL (0.90-5.00); Lymphocytes % (A) 12.8 %; MCH 30.5 pg (27.0-32.0); MCHC 33.2 g/dL (32.0-37.0); MCV 91.9 FL (80.0-97.0); Mean Platelet Volume 11.3 FL (9.5-12.2); Monocytes # (A) 0.72 X 10*3/uL (0.20-1.00); Monocytes % (A) 9.6 %; NRBC Per 100 WBC 0 X 10*3/uL (0.00-0.01); Neutrophils % (A) 71.9 %; Platelet Count 171 X 10*3/uL (140-440); RBC 4.43 X 10*6/uL (4.40-5.60); RDW 13.8 % (11.5-14.5); WBC 7.51 X 10*3/uL (4.50-10.00)
[2025-04-29 15:37] LABS: BUN/Creat Ratio 18.78 Ratio (12.00-20.00); Blood Urea Nitrogen 16.9 mg/dL (9.0-27.0); Chloride 99 mmol/L (96-109); Chol/HDL Ratio 2.31 Ratio; Creatine Kinase 236 U/L (35-257); Glucose 115 mg/dL (70-110); LDL Cholesterol,Calculated 46.9 mg/dL (0.0-131.0); Potassium 3.9 mmol/L (3.5-5.5); Sodium 135 mmol/L (135-145)
[2025-04-29 15:38] LABS: ALT 25 U/L (10-49); AST 23 U/L (14-35); Albumin 3.8 g/dL (3.8-4.9); Albumin/Globulin Ratio 2.24 Ratio (1.60-3.17); Alkaline Phosphatase 62 U/L (41-126); Calcium 8.5 mg/dL (8.7-10.3); Carbon Dioxide 26.3 mmol/L (21.6-31.8); Globulin 1.7 g/dL (1.6-3.3); T4, Free (Free Thyroxine) 1.19 ng/dL (0.80-1.80); Total Bilirubin 0.7 mg/dL (0.3-1.2); Total Protein 5.5 g/dL (6.2-8.2)
== END | disposition home or self-care (01) ==
LOC: LABWHC1 08:33
PROVIDERS: ATTEND Family Medicine
DX: Z00.01 Encounter for general adult medical examination with abnormal findings (principal); Z12.5 Encounter for screening for malignant neoplasm of prostate; E78.5 Hyperlipidemia, unspecified
CPT/HCPCS: 36415; 80053; 80061; 82550; 84153; 84439; 84443; 85025